=== PATIENT | female | born 1940 | race Caucasian/White ===

== ENCOUNTER 2016-04-30 07:30 | Day surgery (SDC) | payer MEDICARE ==
[~2016-04-30 07:30] MED LIST: CENTRUM COMPLE1 EAC1 PO; COZAAR25 M1 PO; LIPITOR20 M1 PO; OS-CAL 500+D31 EAC1 PO; TENORMIN100 M1 PO; VITAMIN D31000 UNI3 PO
== END 2016-04-30 12:15 ==
LOC: SHSB 07:30 → ORE 10:30 → SHSB 11:20
PROC: 0CB10ZZ Excision of Lower Lip, Open Approach (ICD-10-PCS; principal; 2016-04-30)
DX: K13.0 Diseases of lips (principal); I25.10 Atherosclerotic heart disease of native coronary artery without angina pectoris; I10 Essential (primary) hypertension; I83.90 Asymptomatic varicose veins of unspecified lower extremity; E78.5 Hyperlipidemia, unspecified; M19.90 Unspecified osteoarthritis, unspecified site; Z79.899 Other long term (current) drug therapy; Z90.49 Acquired absence of other specified parts of digestive tract; Z98.41 Cataract extraction status, right eye; Z98.42 Cataract extraction status, left eye; Z96.0 Presence of urogenital implants; Z98.890 Other specified postprocedural states